=== PATIENT | female | born 1935 | race African-American/Black ===

== ENCOUNTER 2017-06-04 10:56 | Outpatient (CLI) | payer MEDICARE ==
--- NOTE | 2017-06-04 15:19 | PET ---
PET CT OF BRAIN: Date: 06/04/17 HISTORY: 81-year-old female with Alzheimer's disease. TECHNIQUE: PET CT of the brain was performed following the intravenous administration of 8.2 mCi [id number] in the right antecubital fossa. Imaging was performed after an uptake interval of 48 minutes. FINDINGS: There is hypometabolism noted in the temporoparietal lobes bilaterally. IMPRESSION: Findings are consistent with Alzheimer's disease. POS: [facility]
== END 2017-06-04 10:57 | disposition home or self-care (01) ==
LOC: PET 10:56
PROVIDERS: ATTEND Family Medicine
DX: G30.9 Alzheimer's disease, unspecified (principal)
CPT/HCPCS: 78608; A9552

== ENCOUNTER 2019-02-07 04:03 | Emergency (ER) | payer MEDICARE ==
[2019-02-07] MEDS ORDERED: Ondansetron ODT 4 MG TAB ONE (04:28)
== END 2019-02-07 05:35 | disposition home or self-care (01) ==
LOC: ERS 04:03
DX: R11.2 Nausea with vomiting, unspecified (principal); R19.7 Diarrhea, unspecified; I10 Essential (primary) hypertension; E11.9 Type 2 diabetes mellitus without complications; F03.90 Unspecified dementia, unspecified severity, without behavioral disturbance, psychotic disturbance, mood disturbance, and anxiety; Z79.899 Other long term (current) drug therapy
CPT/HCPCS: 99283; Q0162

== ENCOUNTER 2019-07-30 22:09 | Emergency (ER) | payer MEDICARE ==
[2019-07-30 23:00] LABS: Hemoglobin 14.9 g/dL (12.0-16.0); Mean Corpuscular HGB CONC 32.7 g/dL (32.0-36.0); Mean Corpuscular Hemoglobin 32.1 pg (27.0-31.0); Mean Corpuscular Volume 98.2 fL (78.0-98.0); RBC Distribution Width 12.2 % (11.5-14.5); Red Blood Cell (RBC) Count 4.63 mill/uL (4.20-5.40); White Blood Cell (WBC) Count 9.9 thou/uL (4.8-10.8)
[2019-07-30 23:14] LABS: Band 1 % (5-11); Eosinophils 1 % (0-10); Lymphocytes 15 % (21-51); Monocytes 5 % (0-10); Neutrophil 78 % (42-75)
[2019-07-30 23:26] LABS: ALT (SGPT) 12 U/L (8-55); AST (SGOT) 19 U/L (5-34); Alkaline Phosphatase 65 U/L (40-110); Anion Gap 16 mmol/L (10-20); BUN (Urea Nitrogen) 11 mg/dL (9.8-20.1); Bilirubin, Total 0.6 mg/dL (0.2-1.2); Calc. Creatinine Clearance 0 mL/min (70-130); Calcium 8.8 mg/dL (7.8-10.44); Carbon Dioxide 20 mmol/L (23-31); Chloride 107 mmol/L (98-107); Estimated GFR-MDRD 77; Globulin 3.6 g/dL (2.4-3.5); Glucose 178 mg/dL (83-110); Potassium 4.1 mmol/L (3.5-5.1); Protein, Total 7.6 g/dL (6.0-8.3); Sodium 139 mmol/L (136-145)
--- NOTE | 2019-07-30 23:56 | RAD ---
CHEST 1 VIEW: Date: 07/30/2019 HISTORY: Chest pain. COMPARISON: Radiograph from 2016. FINDINGS: The lungs are hypoinflated. The left hemidiaphragm appears to be slightly elevated. There is atelectatic changes of both lung bases. No pneumothorax. Heart size is enlarged. IMPRESSION: High grade lung hypoinflation with vascular crowding and atelectasis. Repeat 2 views of chest may be beneficial. POS: HOME
[2019-07-30 23:58] LABS: Mean Platelet Volume 9.7 fL (7.4-10.4); Platelet Count 112 thou/uL (130-400)
[2019-07-30 23:59] LABS: MDiff Complete? YES
== END 2019-07-31 00:37 | disposition home or self-care (01) ==
LOC: ERS 22:09
DX: R07.9 Chest pain, unspecified (principal); E78.5 Hyperlipidemia, unspecified; I10 Essential (primary) hypertension; E11.9 Type 2 diabetes mellitus without complications; F03.90 Unspecified dementia, unspecified severity, without behavioral disturbance, psychotic disturbance, mood disturbance, and anxiety
CPT/HCPCS: 36415; 71045; 80053; 83690; 84484; 85025; 93005

== ENCOUNTER 2019-08-04 16:41 | Emergency (ER) | payer MEDICARE ==
--- NOTE | 2019-08-04 17:53 | RAD ---
Frontal radiograph chest 2 views of abdomen: 08/04/2019 COMPARISON: Chest radiograph 07/30/2019 HISTORY: Constipation for a week FINDINGS: Upright imaging demonstrates no free intraperitoneal air or evidence of small bowel obstruc tion. Stool projects over the entirety of the colon, most prominent in the region of the ascending colon/transverse colon/rectum. Frontal radiograph chest demonstrates mild increased linear density in the perihilar regions and both lung bases. Slight blunting of bilateral costophrenic angle suggests small volume pleural effusion and/or pleural scar. IMPRESSION: No free intraperitoneal air or evidence of small bowel obstruction. Nonspecific perihilar and bibasilar interstitial prominence with questionable small pleural effusions.
[2019-08-04] MEDS ORDERED: Milk Of Magnesia 30 ML UDCUP ONE (20:43)
== END 2019-08-04 21:27 | disposition home or self-care (01) ==
LOC: ERS 16:41
DX: K59.00 Constipation, unspecified (principal); E11.9 Type 2 diabetes mellitus without complications; E78.5 Hyperlipidemia, unspecified; I10 Essential (primary) hypertension
CPT/HCPCS: 74022

== ENCOUNTER 2019-09-26 15:06 | Outpatient (CLI) | payer MEDICARE ==
--- NOTE | 2019-09-26 16:08 | CT ---
CT BRAIN NONCONTRAST: DATE: 09/26/2019 HISTORY: 84-year-old female with delirium FINDINGS: There is no evidence of acute intra-axial or extra-axial hemorrhage. There is no midline shift or any other mass effect. There is no extra-axial fluid collection. There is no evidence of obstructive hydrocephalus. Calvarium is intact. There is diffuse brain parenchymal volume loss. IMPRESSION: 1) No acute intracranial findings. 2) involutional changes.
== END 2019-09-26 15:07 | disposition home or self-care (01) ==
LOC: BICCT 15:06
PROVIDERS: ATTEND Family Medicine
DX: R41.0 Disorientation, unspecified (principal)
CPT/HCPCS: 70450

== ENCOUNTER 2020-01-22 17:47 | Emergency (ER) | payer MEDICARE ==
--- NOTE | 2020-01-22 18:36 | CT ---
EXAM: CT brain without contrast HISTORY: Possible seizure versus syncope; dementia COMPARISON: 09/26/2019 TECHNIQUE: Multiple contiguous axial images were obtained and a CT of the brain without contrast. FINDINGS: Cerebral atrophy and basal ganglia calcifications are stable. There are scattered hypodensi ties in the subcortical and periventricular white matter consistent with small vessel ischemic disease. There is no evidence of hydrocephalus, intracranial hemorrhage, or extra-axial fluid collect ion. The calvarium and overlying soft tissues are unremarkable. The visualized paranasal sinuses and masto id air cells are well aerated. IMPRESSION: No evidence of acute intracranial abnormality
[2020-01-22 19:08] LABS: #Eosinphils 0.1 thou/uL (0.0-0.7); #Lymphocytes 1.8 thou/uL (1.20-3.40); #Monocytes 0.4 thou/uL (0.11-0.59); #Neutrophils 2.3 thou/uL (1.40-6.50); %Basophils 0.8 % (0.0-1.0); %Eosinophils 1.8 % (0.0-10.0); %Lymphocytes 39.1 % (21.0-51.0); %Monocytes 9.2 % (0.0-10.0); Hemoglobin 14.7 g/dL (12.0-16.0); Mean Corpuscular HGB CONC 32.8 g/dL (32.0-36.0); Mean Corpuscular Hemoglobin 32.3 pg (27.0-31.0); Mean Corpuscular Volume 98.4 fL (78.0-98.0); Mean Platelet Volume 9.9 fL (7.4-10.4); Platelet Count 162 thou/uL (130-400); Red Blood Cell (RBC) Count 4.54 mill/uL (4.20-5.40); White Blood Cell (WBC) Count 4.7 thou/uL (4.8-10.8)
[2020-01-22 19:27] LABS: ALT (SGPT) 12 U/L (8-55); AST (SGOT) 17 U/L (5-34); Albumin 3.7 g/dL (3.4-4.8); Alkaline Phosphatase 60 U/L (40-110); Anion Gap 13 mmol/L (10-20); BUN (Urea Nitrogen) 12 mg/dL (9.8-20.1); Bilirubin, Total 0.4 mg/dL (0.2-1.2); Calc. Creatinine Clearance 0 mL/min (70-130); Calcium 9.2 mg/dL (7.8-10.44); Carbon Dioxide 27 mmol/L (23-31); Chloride 106 mmol/L (98-107); Estimated GFR-MDRD 71; Globulin 3.6 g/dL (2.4-3.5); Glucose 99 mg/dL (83-110); Potassium 3.8 mmol/L (3.5-5.1); Protein, Total 7.3 g/dL (6.0-8.3); Sodium 142 mmol/L (136-145)
== END 2020-01-22 20:22 | disposition home or self-care (01) ==
LOC: ERS 17:47
DX: I10 Essential (primary) hypertension (principal); F03.90 Unspecified dementia, unspecified severity, without behavioral disturbance, psychotic disturbance, mood disturbance, and anxiety; E11.9 Type 2 diabetes mellitus without complications; E78.5 Hyperlipidemia, unspecified
CPT/HCPCS: 36415; 70450; 80053; 84484; 85025; 93005

== ENCOUNTER 2020-05-08 18:18 | Observation (INO) | payer MEDICARE ==
[2020-05-08 18:50] LABS: Hemoglobin 14.8 g/dL (12.0-16.0); Mean Corpuscular HGB CONC 32.2 g/dL (32.0-36.0); Mean Corpuscular Hemoglobin 32.4 pg (27.0-31.0); Mean Platelet Volume 9.7 fL (7.4-10.4); Platelet Count 196 thou/uL (130-400); RBC Distribution Width 12.5 % (11.5-14.5); Red Blood Cell (RBC) Count 4.57 mill/uL (4.20-5.40); White Blood Cell (WBC) Count 4.6 thou/uL (4.8-10.8)
[2020-05-08 19:09] LABS: ALT (SGPT) 25 U/L (8-55); AST (SGOT) 23 U/L (5-34); Albumin 3.7 g/dL (3.4-4.8); Alkaline Phosphatase 58 U/L (40-110); Anion Gap 14 mmol/L (10-20); BUN (Urea Nitrogen) 18 mg/dL (9.8-20.1); Bilirubin, Total 0.2 mg/dL (0.2-1.2); CK (CPK) 63 U/L (29-168); Calc. Creatinine Clearance 0 mL/min (70-130); Calcium 9.4 mg/dL (7.8-10.44); Carbon Dioxide 23 mmol/L (23-31); Chloride 107 mmol/L (98-107); Globulin 3.8 g/dL (2.4-3.5); Glucose 136 mg/dL (83-110); Potassium 4.2 mmol/L (3.5-5.1); Protein, Total 7.5 g/dL (5.8-8.1); Sodium 140 mmol/L (136-145)
[2020-05-08 19:10] LABS: Band 3 % (5-11); Eosinophils 2 % (0-10); Lymphocytes 50 % (21-51); MDiff Complete? YES; Macrocytosis SLIGHT = 6-15 cells (100X) (0-5/hpf); Monocytes 10 % (0-10); Neutrophil 29 % (42-75); Platelet Morphology Comment Appears Adequate; Polychromasia SLIGHT = 2-3 cells (100X) (0-2/hpf); Reactive Lymphocytes 6 % (0-10)
[2020-05-08 22:38] LABS: Bilirubin Negative (Negative); Blood, Urine Negative (Negative); Clarity Clear (Clear); Glucose, Urine (Dipstick) Normal (Negative); Ketone, Urine Negative (Negative); Leukocyte Negative Leu/uL (Negative); Nitrite Negative (Negative); Protein, Urine (Dipstick) Negative (Neg-Trace); Specific Gravity, Urine 1.021 (1.002-1.036); pH, Urine 6.5 (5.0-9.0)
[2020-05-08 23:26] LABS: Troponin I 0.017 ng/mL (< 0.028)
[2020-05-09 01:25] LABS: Troponin I 0.015 ng/mL (< 0.028)
[2020-05-09 05:45] LABS: SARS-CoV-2 PCR by NAA Not Detected (NotDetected)
[2020-05-09] MEDS ORDERED: Dextrose 50% Abboject 50 ML SYRINGE SLOW IVP PRN (07:12)
[2020-05-09] MEDS ORDERED: Dextrose 5% in Water 1,000 ML IV PRN (07:12)
[2020-05-09] MEDS ORDERED: HumaLOG 300 UNITS/3 ML VIAL SC PRN (07:12)
[2020-05-09] MEDS ORDERED: Enoxaparin Sodium 40 MG/0.4 ML SYRINGE SC SCH (09:00)
[2020-05-09] MEDS ORDERED: Enoxaparin Sodium 40 MG/0.4 ML SYRINGE ONE (10:18)
== END 2020-05-09 10:30 | disposition short-term general hospital (02) ==
LOC: ERS 18:18 → ERHOLD 22:23
PROVIDERS: ADMIT Student in an Organized Health Care Education/Training Program; ATTEND Internal Medicine
DX: R55 Syncope and collapse (principal); I95.9 Hypotension, unspecified; E11.9 Type 2 diabetes mellitus without complications; I10 Essential (primary) hypertension; E78.5 Hyperlipidemia, unspecified; S00.81XA Abrasion of other part of head, initial encounter; S80.212A Abrasion, left knee, initial encounter; G30.9 Alzheimer's disease, unspecified; F02.80 Dementia in other diseases classified elsewhere, unspecified severity, without behavioral disturbance, psychotic disturbance, mood disturbance, and anxiety; M47.816 Spondylosis without myelopathy or radiculopathy, lumbar region; M47.817 Spondylosis without myelopathy or radiculopathy, lumbosacral region; M85.88 Other specified disorders of bone density and structure, other site; M81.0 Age-related osteoporosis without current pathological fracture; Z79.84 Long term (current) use of oral hypoglycemic drugs; Z79.899 Other long term (current) drug therapy; Z20.822 Contact with and (suspected) exposure to COVID-19; W19.XXXA Unspecified fall, initial encounter
CPT/HCPCS: 70450; 71045; 72125; 72131; 80053; 81003; 82550; 84484 ×3; 85025; 87086; 93005; 97139; 99285; U0003; U0005; 36415; 87635; J1650

== ENCOUNTER 2020-12-28 16:40 | Inpatient (IN) | payer MEDICARE ==
[~2020-12-28 16:40] MED LIST: Iopamidol-370 76% 500 ML 1 ML ONE
[2020-12-28 17:03] LABS: Hemoglobin 15.1 g/dL (12.0-16.0); Mean Corpuscular HGB CONC 33.4 g/dL (32.0-36.0); Mean Corpuscular Hemoglobin 32.3 pg (27.0-31.0); Mean Corpuscular Volume 96.9 fL (78.0-98.0); Mean Platelet Volume 10.1 fL (7.4-10.4); Platelet Count 177 thou/uL (130-400); Red Blood Cell (RBC) Count 4.66 mill/uL (4.20-5.40); White Blood Cell (WBC) Count 6.1 thou/uL (4.8-10.8)
[2020-12-28 17:10] LABS: PTT 23.1 sec (22.9-36.1); Prothrombin Time 12.8 sec (12.0-14.7)
[2020-12-28 17:15] LABS: ALT (SGPT) 16 U/L (8-55); AST (SGOT) 18 U/L (5-34); Alkaline Phosphatase 55 U/L (40-110); Anion Gap 18 mmol/L (10-20); BUN (Urea Nitrogen) 16 mg/dL (9.8-20.1); Bilirubin, Total 0.3 mg/dL (0.2-1.2); CK (CPK) 79 U/L (29-168); Calc. Creatinine Clearance 0 mL/min (70-130); Calcium 9.5 mg/dL (7.8-10.44); Carbon Dioxide 18 mmol/L (23-31); Chloride 109 mmol/L (98-107); Globulin 3.6 g/dL (2.4-3.5); Glucose 171 mg/dL (83-110); Magnesium 2.4 mg/dL (1.6-2.6); Potassium 4.2 mmol/L (3.5-5.1); Protein, Total 7.6 g/dL (5.8-8.1); Sodium 141 mmol/L (136-145)
[2020-12-28 17:24] LABS: Bilirubin Negative (Negative); Blood, Urine Negative (Negative); Glucose, Urine (Dipstick) Negative (Negative); Ketone, Urine Trace mg/dL (Negative); Leukocyte Trace (Negative); Nitrite Negative (Negative); Protein, Urine (Dipstick) Trace mg/dL (Neg-Trace); Specific Gravity, Urine 1.025 (1.005-1.030); Urobilinogen 0.2 mg/dL (Less than 2)
[2020-12-28 17:25] LABS: Clarity Clear (Clear)
[2020-12-28 17:26] LABS: Other Microscopic Description Less than 2 mL rec'd
[2020-12-28 17:27] LABS: Bacteria/HPF 2+ HPF (None Seen); RBC/HPF None Seen HPF (0-3); WBC/HPF 0-3 HPF (0-3)
[2020-12-28 17:28] LABS: Band 4 % (5-11); Lymphocytes 60 % (21-51); MDiff Complete? YES; Monocytes 7 % (0-10); Neutrophil 18 % (42-75); Platelet Morphology Comment Appears Adequate; RBC Morphology Normal; Reactive Lymphocytes 11 % (0-10)
[2020-12-28] MEDS ORDERED: Senokot S 8.6-50 MG TAB PO PRN (17:51)
[2020-12-28] MEDS ORDERED: Acetaminophen 325 MG TAB PO PRN (17:51)
[2020-12-28] MEDS ORDERED: Ondansetron PF 4 MG/2 ML Vial IVP PRN (17:51)
[2020-12-28] MEDS ORDERED: Guaifenesin DM 100-10/5 ML UDCUP PO PRN (17:51)
[2020-12-28] MEDS ORDERED: Calcium Carbonate 500 MG ChewTAB PO PRN (17:51)
[2020-12-28] MEDS ORDERED: Bisacodyl 10 MG SUPP PR PRN (17:51)
[2020-12-28] MEDS ORDERED: cefTRIAXone\\ROCEPHIN 2 GM VIAL ONE (17:58)
[2020-12-28 20:04] LABS: Lactic Acid 2.2 mmol/L (0.5-2.2)
[2020-12-28] MEDS ORDERED: Famotidine 20 MG TAB PO SCH (21:00)
[2020-12-28 22:15] VITALS: BMI 27.3
[2020-12-28 22:33] LABS: Amphetamine Not Detected (NotDetected); Barbiturates Screen Not Detected (NotDetected); Benzodiazepine Screen Not Detected (NotDetected); Cocaine Metabolite Screen Not Detected (NotDetected); Methadone Not Detected (NotDetected); Methamphetamine Not Detected (NotDetected); Opiate Screen Not Detected (NotDetected); Oxycodone Screen Not Detected (NotDetected); Phencyclidine (PCP) Not Detected (NotDetected); THC/Cannabinoid Screen Not Detected (NotDetected); Tricyclic Screen Not Detected (NotDetected)
[2020-12-28] MEDS: Sodium Chloride 0.9% 1,000 ML IV SCH (22:41)
[2020-12-29] MEDS ORDERED: Lisinopril 20 MG TAB PO SCH ×2 (00:45→09:00)
[2020-12-29 08:29] LABS: #Lymphocytes 2.1 thou/uL (1.20-3.40); #Monocytes 0.8 thou/uL (0.11-0.59); #Neutrophils 4.8 thou/uL (1.40-6.50); %Basophils 0.5 % (0.0-1.0); %Eosinophils 0.6 % (0.0-10.0); %Monocytes 9.8 % (0.0-10.0); %Neutrophils 62.1 % (42.0-75.0); Hemoglobin 14.9 g/dL (12.0-16.0); Mean Corpuscular HGB CONC 34.6 g/dL (32.0-36.0); Mean Corpuscular Hemoglobin 34.1 pg (27.0-31.0); Mean Corpuscular Volume 98.5 fL (78.0-98.0); Mean Platelet Volume 10.1 fL (7.4-10.4); Platelet Count 155 thou/uL (130-400); RBC Distribution Width 12.2 % (11.5-14.5); Red Blood Cell (RBC) Count 4.36 mill/uL (4.20-5.40); White Blood Cell (WBC) Count 7.8 thou/uL (4.8-10.8)
[2020-12-29 08:49] LABS: ALT (SGPT) 14 U/L (8-55); AST (SGOT) 16 U/L (5-34); Albumin 3.8 g/dL (3.4-4.8); Alkaline Phosphatase 56 U/L (40-110); Anion Gap 13 mmol/L (10-20); BUN (Urea Nitrogen) 11 mg/dL (9.8-20.1); Bilirubin, Total 0.5 mg/dL (0.2-1.2); Calc. Creatinine Clearance 71 mL/min (70-130); Carbon Dioxide 23 mmol/L (23-31); Chloride 108 mmol/L (98-107); Globulin 3.3 g/dL (2.4-3.5); Glucose 91 mg/dL (83-110); Potassium 4.3 mmol/L (3.5-5.1); Protein, Total 7.1 g/dL (5.8-8.1); Sodium 140 mmol/L (136-145)
[2020-12-29] MEDS ORDERED: Enoxaparin Sodium 40 MG/0.4 ML SYRINGE SC SCH (09:00)
[2020-12-29] MEDS ORDERED: Amlodipine 10 MG TAB PO SCH (11:15)
[2020-12-29 11:35] VITALS: BP 142/98; TEMP 98.3
[2020-12-29] MEDS: Sodium Chloride 0.9% 1,000 ML IV SCH (12:31)
[2020-12-29 16:22] LABS: SARS-CoV-2 PCR by NAA Not Detected (NotDetected)
[2020-12-30] MEDS ORDERED: Amlodipine 10 MG TAB PO SCH (09:00)
== END 2020-12-29 13:07 | disposition home or self-care (01) | DRG 641 ==
LOC: ERS 16:40 → 2NO 17:37
PROVIDERS: ADMIT Internal Medicine; ATTEND Internal Medicine
DX: E86.0 Dehydration (principal); N39.0 Urinary tract infection, site not specified; Z20.822 Contact with and (suspected) exposure to COVID-19; I95.9 Hypotension, unspecified; I10 Essential (primary) hypertension; E11.9 Type 2 diabetes mellitus without complications; E78.5 Hyperlipidemia, unspecified; K21.9 Gastro-esophageal reflux disease without esophagitis; G30.9 Alzheimer's disease, unspecified; F02.80 Dementia in other diseases classified elsewhere, unspecified severity, without behavioral disturbance, psychotic disturbance, mood disturbance, and anxiety; Z79.84 Long term (current) use of oral hypoglycemic drugs; Z90.49 Acquired absence of other specified parts of digestive tract; Z90.711 Acquired absence of uterus with remaining cervical stump; Z79.899 Other long term (current) drug therapy
CPT/HCPCS: 36415; 36416; 51701; 70496; 71045; 80053; 80306; 81003; 81015; 82550; 83605; 83735; 84443; 84484; 85025; 85610; 85730; 87040; 87086; 93005; 93880; 94760; 96374; J0696; J1650; J1956; J7050; Q9967; U0003; U0005

== ENCOUNTER 2022-10-27 16:27 | Observation (INO) | payer MEDICARE, OTHER ==
[2022-10-27 18:18] LABS: Bacteria/HPF 1+ HPF (None Seen); Bilirubin Negative (Negative); Blood, Urine Negative (Negative); CAUTI Indications for Culture Alt mental st,lethar; Clarity Turbid (Clear); Glucose, Urine (Dipstick) Normal (Negative); Ketone, Urine 10 mg/dL (Negative); Leukocyte 25 Leu/uL (Negative); Nitrite Negative (Negative); Protein, Urine (Dipstick) 30 mg/dL (Neg-Trace); RBC/HPF 0-3 HPF (0-3); Specific Gravity, Urine 1.018 (1.002-1.036); Squamous Epithelial 0-3 HPF (0-3)
[2022-10-27 18:20] LABS: Urine Culture Reflex No No
[2022-10-27 18:23] LABS: Amphetamine Not Detected (NotDetected); Barbiturates Screen Not Detected (NotDetected); Benzodiazepine Screen Not Detected (NotDetected); Cocaine Metabolite Screen Not Detected (NotDetected); Methadone Not Detected (NotDetected); Methamphetamine Not Detected (NotDetected); Opiate Screen Not Detected (NotDetected); Oxycodone Screen Not Detected (NotDetected); Phencyclidine (PCP) Not Detected (NotDetected); THC/Cannabinoid Screen Not Detected (NotDetected); Tricyclic Screen Not Detected (NotDetected)
[2022-10-27 18:41] LABS: #Monocytes 0.6 thou/uL (0.11-0.59); #Neutrophils 5.9 thou/uL (1.40-6.50); %Basophils 0.5 % (0.0-1.0); %Eosinophils 0.5 % (0.0-10.0); %Lymphocytes 13.1 % (21.0-51.0); %Monocytes 7.5 % (0.0-10.0); Hematocrit 48.1 % (36.0-47.0); Hemoglobin 15.4 g/dL (12.0-16.0); Mean Corpuscular Hemoglobin 31.4 pg (27.0-31.0); Mean Corpuscular Volume 98.2 fl (78.0-98.0); Mean Platelet Volume 12.2 fL (7.4-10.4); Platelet Count 154 10x3/uL (130-400); RBC Distribution Width 13.7 % (11.5-14.5); White Blood Cell (WBC) Count 7.5 10x3/uL (4.8-10.8)
[2022-10-27 19:11] LABS: ALT (SGPT) 11 U/L (8-55); AST (SGOT) 18 U/L (5-34); Albumin 3.8 g/dL (3.4-4.8); Alkaline Phosphatase 60 U/L (40-110); Anion Gap 15 mmol/L (10-20); BUN (Urea Nitrogen) 19 mg/dL (9.8-20.1); Bilirubin, Total 0.8 mg/dL (0.2-1.2); Calc. Creatinine Clearance 0 mL/min (70-130); Calcium 9.1 mg/dL (7.8-10.44); Carbon Dioxide 21 mmol/L (23-31); Chloride 111 mmol/L (98-107); Estimated GFR 55; Globulin 3.8 g/dL (2.4-3.5); Glucose 101 mg/dL (83-110); Potassium 3.4 mmol/L (3.5-5.1); Protein, Total 7.6 g/dL (5.8-8.1); Sodium 144 mmol/L (136-145)
[2022-10-27 19:16] LABS: Troponin I Less than 0.010 ng/mL (< 0.028)
[2022-10-27] MEDS ORDERED: cefTRIAXone (ROCEPHIN) 1 GM VIAL ONE (19:18)
[2022-10-27 19:36] LABS: Acetaminophen Less than 10 mcg/mL (10.0-30.0); Alcohol Less than 10.0 mg/dL (Less than 10); Salicylate Less than 8.0 mg/dL (15.0-30.0)
[2022-10-27 21:29] LABS: Lactic Acid 1.5 mmol/L (0.5-2.2)
[2022-10-27] MEDS ORDERED: Ondansetron PF 4 MG/2 ML Vial IVP PRN (22:00)
[2022-10-27] MEDS ORDERED: Ondansetron ODT 4 MG TAB SL PRN (22:00)
[2022-10-27] MEDS ORDERED: Sodium Chloride 0.9% 1,000 ML IV SCH (22:00)
[2022-10-27] MEDS ORDERED: Senokot S 8.6-50 MG TAB PO PRN (22:06)
[2022-10-27] MEDS ORDERED: Acetaminophen 325 MG TAB PO PRN (22:06)
[2022-10-27] MEDS ORDERED: Calcium Carbonate 500 MG ChewTAB PO PRN (22:06)
[2022-10-27 22:34] LABS: Hemoglobin A1c 5.6 % (4.0-6.0)
[2022-10-27 23:05] VITALS: BMI 26.4
[2022-10-28] MEDS ORDERED: Melatonin 3 MG TAB PO PRN (00:24)
[2022-10-28] MEDS ORDERED: hydrALAZINE 20 MG/ML VIAL SLOW IVP SCH (01:30)
[2022-10-28 05:23] LABS: #Eosinphils 0.1 thou/uL (0.0-0.7); #Monocytes 0.6 thou/uL (0.11-0.59); #Neutrophils 3.8 thou/uL (1.40-6.50); %Basophils 0.5 % (0.0-1.0); %Eosinophils 0.8 % (0.0-10.0); %Lymphocytes 29.1 % (21.0-51.0); %Monocytes 8.8 % (0.0-10.0); %Neutrophils 60.5 % (42.0-75.0); Hematocrit 45.2 % (36.0-47.0); Hemoglobin 14.7 g/dL (12.0-16.0); Mean Corpuscular HGB CONC 32.5 g/dL (32.0-36.0); Mean Corpuscular Volume 98.5 fl (78.0-98.0); Mean Platelet Volume 12.3 fL (7.4-10.4); Platelet Count 169 10x3/uL (130-400); RBC Distribution Width 13.7 % (11.5-14.5); Red Blood Cell (RBC) Count 4.59 mill/uL (4.20-5.40); White Blood Cell (WBC) Count 6.3 10x3/uL (4.8-10.8)
[2022-10-28 05:53] LABS: Anion Gap 13 mmol/L (10-20); BUN (Urea Nitrogen) 13 mg/dL (9.8-20.1); Calc. Creatinine Clearance 65 mL/min (70-130); Calcium 8.4 mg/dL (7.8-10.44); Carbon Dioxide 19 mmol/L (23-31); Chloride 115 mmol/L (98-107); Estimated GFR 85; Glucose 92 mg/dL (83-110); Potassium 3.4 mmol/L (3.5-5.1); Sodium 144 mmol/L (136-145)
[2022-10-28] MEDS ORDERED: Amlodipine 10 MG TAB PO SCH (09:00)
[2022-10-28 12:47] VITALS: BP 157/70; TEMP 97.2
== END 2022-10-28 15:20 | disposition home or self-care (01) ==
LOC: ERS 16:27 → EDBD 16:27 → 2SE 20:05
PROVIDERS: ADMIT Student in an Organized Health Care Education/Training Program; ATTEND Hospitalist
DX: R55 Syncope and collapse (principal); E11.9 Type 2 diabetes mellitus without complications; I10 Essential (primary) hypertension; E78.5 Hyperlipidemia, unspecified; K21.9 Gastro-esophageal reflux disease without esophagitis; R82.71 Bacteriuria; F03.90 Unspecified dementia, unspecified severity, without behavioral disturbance, psychotic disturbance, mood disturbance, and anxiety; Z90.49 Acquired absence of other specified parts of digestive tract; Z90.710 Acquired absence of both cervix and uterus; Z79.891 Long term (current) use of opiate analgesic; W19.XXXA Unspecified fall, initial encounter
CPT/HCPCS: 51701; 70450; 71045; 72125; 80048; 80306; 80307; 81001; 82962; 83036; 83605; 84145; 84484; 85025; 87040; 93005; 95712; 95819; 95957; 96365; 96367; 96375; 99285; G0378 ×3; J0360; 36415; 80053; 84443; J0696; J7050

== ENCOUNTER 2023-01-15 17:51 | Inpatient (IN) | payer MEDICARE ==
[~2023-01-15 17:51] MED LIST changes: +Iopamidol 370 76% 100 ML VIAL ONE; -Iopamidol-370 76% 500 ML 1 ML ONE; +Iopamidol-370 76% 500 ML MDV (1 ML CHARGE) ONE
[2023-01-15 18:46] LABS: #Monocytes 0.4 thou/uL (0.11-0.59); #Neutrophils 3.4 thou/uL (1.40-6.50); %Basophils 0.6 % (0.0-1.0); %Eosinophils 0.4 % (0.0-10.0); %Lymphocytes 25.2 % (21.0-51.0); %Monocytes 6.9 % (0.0-10.0); %Neutrophils 66.7 % (42.0-75.0); Hematocrit 39.9 % (36.0-47.0); Hemoglobin 13.2 g/dL (12.0-16.0); Mean Corpuscular HGB CONC 33.1 g/dL (32.0-36.0); Mean Corpuscular Hemoglobin 32.4 pg (27.0-31.0); Mean Corpuscular Volume 97.8 fl (78.0-98.0); Mean Platelet Volume 11.4 fL (7.4-10.4); Platelet Count 175 10x3/uL (130-400); RBC Distribution Width 13.6 % (11.5-14.5); Red Blood Cell (RBC) Count 4.08 mill/uL (4.20-5.40); White Blood Cell (WBC) Count 5.1 10x3/uL (4.8-10.8)
[2023-01-15] MEDS ORDERED: fentaNYL PF 100 MCG/2 ML SYRINGE ONE (18:54)
[2023-01-15] MEDS ORDERED: Lidocaine 1% (PF) 30 ML VIAL ONE (19:04)
[2023-01-15] MEDS ORDERED: Heparin 10,000 UNITS/ 10 ML VIAL ONE (19:04)
[2023-01-15] MEDS ORDERED: SUGAMMADEX SODIUM 200 MG/2 ML VIAL ONE (19:12)
[2023-01-15 19:13] LABS: Troponin I 0.015 ng/mL (< 0.028)
[2023-01-15 19:14] LABS: ALT (SGPT) 11 U/L (8-55); AST (SGOT) 17 U/L (5-34); Alkaline Phosphatase 52 U/L (40-110); Anion Gap 14 mmol/L (10-20); BUN (Urea Nitrogen) 15 mg/dL (9.8-20.1); Bilirubin, Total 0.5 mg/dL (0.2-1.2); Calc. Creatinine Clearance 0 mL/min (70-130); Calcium 9.3 mg/dL (7.8-10.44); Carbon Dioxide 24 mmol/L (23-31); Chloride 105 mmol/L (98-107); Estimated GFR 68; Glucose 143 mg/dL (83-110); Sodium 139 mmol/L (136-145)
[2023-01-15 19:21] LABS: Prothrombin Time 13.9 sec (12.0-14.7)
[2023-01-15 19:23] LABS: PTT 25.4 sec (22.9-36.1)
[2023-01-15] MEDS ORDERED: Rocuronium Bromide 10 MG/ML (10ML VIAL) ONE (19:26)
[2023-01-15] MEDS ORDERED: PROPOFOL 200 MG/20 ML VIAL ONE (19:26)
[2023-01-15] MEDS ORDERED: Lidocaine 1% PF 5 ML VIAL ONE (19:26)
[2023-01-15] MEDS ORDERED: Esmolol 100 MG/10 ML VIAL ONE (19:26)
[2023-01-15] MEDS ORDERED: Acetaminophen 325 MG TAB PO PRN (20:07)
[2023-01-15] MEDS ORDERED: niCARdipine 25 MG in Sodium Chloride 0.9% 250 ML 250 ML IVPB PRN (20:07)
[2023-01-15] MEDS ORDERED: Labetalol HCl 100 MG/20 ML VIAL SLOW IVP PRN (20:07)
[2023-01-15] MEDS ORDERED: hydrALAZINE 20 MG/ML VIAL SLOW IVP PRN (20:07)
[2023-01-15] MEDS: Sodium Chloride 0.9% 1,000 ML IV SCH (20:45)
[2023-01-15] MEDS ORDERED: Glucagon 1 MG/ML KIT IM PRN (21:34)
[2023-01-15] MEDS ORDERED: Dextrose 50% Abboject 50 ML SYRINGE SLOW IVP PRN (21:34)
[2023-01-15] MEDS ORDERED: Dextrose 5% in Water 1,000 ML IV PRN (21:34)
[2023-01-15] MEDS ORDERED: Electrolyte Replacement Protocol 1 EACH FS PRN (21:34)
[2023-01-15] MEDS: Atorvastatin Calcium 40 MG TAB PO SCH (22:16)
[2023-01-16 05:08] LABS: #Monocytes 0.4 thou/uL (0.11-0.59); #Neutrophils 4.1 thou/uL (1.40-6.50); %Basophils 0.2 % (0.0-1.0); %Monocytes 6.9 % (0.0-10.0); %Neutrophils 78.5 % (42.0-75.0); Hematocrit 38.5 % (36.0-47.0); Hemoglobin 12.8 g/dL (12.0-16.0); Mean Corpuscular HGB CONC 33.2 g/dL (32.0-36.0); Mean Corpuscular Hemoglobin 32.7 pg (27.0-31.0); Mean Corpuscular Volume 98.2 fl (78.0-98.0); Mean Platelet Volume 11.8 fL (7.4-10.4); Platelet Count 180 10x3/uL (130-400); RBC Distribution Width 13.5 % (11.5-14.5); Red Blood Cell (RBC) Count 3.92 mill/uL (4.20-5.40); White Blood Cell (WBC) Count 5.2 10x3/uL (4.8-10.8)
[2023-01-16 05:43] LABS: Anion Gap 15 mmol/L (10-20); BUN (Urea Nitrogen) 10 mg/dL (9.8-20.1); Calc. Creatinine Clearance 64 mL/min (70-130); Calcium 8.6 mg/dL (7.8-10.44); Carbon Dioxide 21 mmol/L (23-31); Chloride 108 mmol/L (98-107); Cholesterol 254 mg/dl (< 200 Desired); Estimated GFR 78; Glucose 129 mg/dL (83-110); HDL Cholesterol 63 mg/dL (>60 Neg Risk); LDL Cholesterol, Calculated 174 mg/dL; Potassium 3.9 mmol/L (3.5-5.1); Sodium 140 mmol/L (136-145); Triglycerides 83 mg/dL (Less than 150)
[2023-01-16] MEDS: Aspirin 300 MG Suppository PR SCH (09:30)
[2023-01-16] MEDS: Aspirin 325 mg Enteric Coated Tablet PO SCH (09:31)
[2023-01-16] MEDS: Pantoprazole 40 MG VIAL IVP SCH (09:31)
[2023-01-16] MEDS: Sodium Chloride 0.9% 1,000 ML IV SCH ×2 (11:07→20:01)
[2023-01-16] MEDS: Atorvastatin Calcium 40 MG TAB PO SCH (20:01)
[2023-01-17 05:35] VITALS: BMI 25.9
[2023-01-17] MEDS: Pantoprazole 40 MG VIAL IVP SCH (09:40)
[2023-01-17] MEDS: Aspirin 300 MG Suppository PR SCH (09:40)
[2023-01-17] MEDS: Aspirin 325 mg Enteric Coated Tablet PO SCH (09:41)
[2023-01-17] MEDS: Sodium Chloride 0.9% 1,000 ML IV SCH ×2 (09:42→21:08)
[2023-01-17] MEDS: Atorvastatin Calcium 40 MG TAB PO SCH (21:04)
[2023-01-18 06:58] LABS: #Eosinphils 0.1 thou/uL (0.0-0.7); #Monocytes 0.8 thou/uL (0.11-0.59); #Neutrophils 3.4 thou/uL (1.40-6.50); %Basophils 0.6 % (0.0-1.0); %Eosinophils 1.8 % (0.0-10.0); %Lymphocytes 29.5 % (21.0-51.0); %Monocytes 12.8 % (0.0-10.0); Hematocrit 36.2 % (36.0-47.0); Mean Corpuscular HGB CONC 33.1 g/dL (32.0-36.0); Mean Corpuscular Hemoglobin 32.3 pg (27.0-31.0); Mean Corpuscular Volume 97.3 fl (78.0-98.0); Mean Platelet Volume 11.6 fL (7.4-10.4); Platelet Count 147 10x3/uL (130-400); RBC Distribution Width 13.6 % (11.5-14.5); Red Blood Cell (RBC) Count 3.72 mill/uL (4.20-5.40); White Blood Cell (WBC) Count 6.2 10x3/uL (4.8-10.8)
[2023-01-18 07:29] LABS: Anion Gap 10 mmol/L (10-20); BUN (Urea Nitrogen) 8 mg/dL (9.8-20.1); Calc. Creatinine Clearance 71 mL/min (70-130); Calcium 8.4 mg/dL (7.8-10.44); Carbon Dioxide 22 mmol/L (23-31); Chloride 110 mmol/L (98-107); Estimated GFR 86; Glucose 89 mg/dL (83-110); Potassium 3.3 mmol/L (3.5-5.1); Sodium 139 mmol/L (136-145)
[2023-01-18] MEDS: Aspirin 300 MG Suppository PR SCH (08:22)
[2023-01-18] MEDS: Pantoprazole 40 MG VIAL IVP SCH (08:23)
[2023-01-18] MEDS: Aspirin 325 mg Enteric Coated Tablet PO SCH (08:23)
[2023-01-18] MEDS: Sodium Chloride 0.9% 1,000 ML IV SCH ×2 (08:54→22:37)
[2023-01-18] MEDS ORDERED: FLU VACC QS2023(65UP)/MF59C/PF 60 MCG/0.5 ML SYRINGE IM ONE (09:00)
[2023-01-18] MEDS ORDERED: Potassium Chloride 20 MEQ TAB PO SCH (09:00)
[2023-01-18] MEDS: Potassium Chloride 20 MEQ in Premix 1 BAG IVPB SCH ×2 (10:13→11:50)
[2023-01-18] MEDS: Atorvastatin Calcium 40 MG TAB PO SCH (21:01)
[2023-01-19] MEDS ORDERED: NOREPINEPHRINE 8 MG/250 ML-D5W 250 ML ONE (03:07)
[2023-01-19 04:00] LABS: #Eosinphils 0.2 thou/uL (0.0-0.7); #Monocytes 0.7 thou/uL (0.11-0.59); #Neutrophils 3.1 thou/uL (1.40-6.50); %Basophils 0.5 % (0.0-1.0); %Eosinophils 2.9 % (0.0-10.0); %Lymphocytes 29.8 % (21.0-51.0); %Neutrophils 54.5 % (42.0-75.0); Hematocrit 34.6 % (36.0-47.0); Hemoglobin 11.3 g/dL (12.0-16.0); Mean Corpuscular HGB CONC 32.7 g/dL (32.0-36.0); Mean Corpuscular Hemoglobin 32.1 pg (27.0-31.0); Mean Corpuscular Volume 98.3 fl (78.0-98.0); Mean Platelet Volume 11.6 fL (7.4-10.4); Platelet Count 149 10x3/uL (130-400); RBC Distribution Width 13.6 % (11.5-14.5); Red Blood Cell (RBC) Count 3.52 mill/uL (4.20-5.40); White Blood Cell (WBC) Count 5.8 10x3/uL (4.8-10.8)
[2023-01-19 04:28] LABS: Anion Gap 12 mmol/L (10-20); BUN (Urea Nitrogen) 9 mg/dL (9.8-20.1); Calc. Creatinine Clearance 75 mL/min (70-130); Calcium 8.4 mg/dL (7.8-10.44); Carbon Dioxide 22 mmol/L (23-31); Chloride 109 mmol/L (98-107); Estimated GFR 86; Glucose 84 mg/dL (83-110); Potassium 3.5 mmol/L (3.5-5.1); Sodium 139 mmol/L (136-145)
[2023-01-19] MEDS: Aspirin 325 mg Enteric Coated Tablet PO SCH (07:52)
[2023-01-19] MEDS: Aspirin 300 MG Suppository PR SCH (07:52)
[2023-01-19] MEDS: Pantoprazole 40 MG VIAL IVP SCH (07:53)
[2023-01-19] MEDS: Potassium Chloride 20 MEQ in Premix 1 BAG IVPB SCH ×2 (07:53→09:42)
[2023-01-19] MEDS: Sodium Chloride 0.9% 1,000 ML IV SCH (09:43)
[2023-01-19] MEDS: Atorvastatin Calcium 40 MG TAB PO SCH (20:05)
[2023-01-20] MEDS: Sodium Chloride 0.9% 1,000 ML IV SCH ×3 (00:55→13:15)
[2023-01-20 05:39] LABS: #Eosinphils 0.2 thou/uL (0.0-0.7); #Monocytes 0.7 thou/uL (0.11-0.59); #Neutrophils 2.9 thou/uL (1.40-6.50); %Basophils 0.8 % (0.0-1.0); %Eosinophils 3.1 % (0.0-10.0); %Lymphocytes 27.1 % (21.0-51.0); %Monocytes 12.7 % (0.0-10.0); %Neutrophils 55.9 % (42.0-75.0); Hematocrit 37.4 % (36.0-47.0); Hemoglobin 12.4 g/dL (12.0-16.0); Mean Corpuscular HGB CONC 33.2 g/dL (32.0-36.0); Mean Corpuscular Hemoglobin 32.5 pg (27.0-31.0); Mean Corpuscular Volume 98.2 fl (78.0-98.0); Mean Platelet Volume 12.8 fL (7.4-10.4); Platelet Count 155 10x3/uL (130-400); RBC Distribution Width 13.5 % (11.5-14.5); Red Blood Cell (RBC) Count 3.81 mill/uL (4.20-5.40); White Blood Cell (WBC) Count 5.1 10x3/uL (4.8-10.8)
[2023-01-20 06:14] LABS: Anion Gap 13 mmol/L (10-20); BUN (Urea Nitrogen) 8 mg/dL (9.8-20.1); Calc. Creatinine Clearance 71 mL/min (70-130); Calcium 8.6 mg/dL (7.8-10.44); Carbon Dioxide 20 mmol/L (23-31); Chloride 109 mmol/L (98-107); Estimated GFR 86; Glucose 91 mg/dL (83-110); Potassium 4.1 mmol/L (3.5-5.1); Sodium 138 mmol/L (136-145)
[2023-01-20] MEDS: Aspirin 325 mg Enteric Coated Tablet PO SCH (09:31)
[2023-01-20] MEDS: Pantoprazole 40 MG VIAL IVP SCH (09:32)
[2023-01-20] MEDS: Aspirin 300 MG Suppository PR SCH (11:33)
[2023-01-20] MEDS: Atorvastatin Calcium 40 MG TAB PO SCH (20:14)
[2023-01-21] MEDS: Sodium Chloride 0.9% 1,000 ML IV SCH ×2 (02:08→14:46)
[2023-01-21] MEDS: Pantoprazole 40 MG VIAL IVP SCH (10:37)
[2023-01-21] MEDS: Aspirin 325 mg Enteric Coated Tablet PO SCH (10:37)
[2023-01-21] MEDS: Aspirin 300 MG Suppository PR SCH (10:38)
[2023-01-21] MEDS: Atorvastatin Calcium 40 MG TAB PO SCH (20:16)
[2023-01-22] MEDS: Sodium Chloride 0.9% 1,000 ML IV SCH ×2 (01:12→13:55)
[2023-01-22 05:31] LABS: Anion Gap 12 mmol/L (10-20); BUN (Urea Nitrogen) 6 mg/dL (9.8-20.1); Calc. Creatinine Clearance 67 mL/min (70-130); Calcium 8.6 mg/dL (7.8-10.44); Carbon Dioxide 23 mmol/L (23-31); Chloride 107 mmol/L (98-107); Estimated GFR 85; Glucose 90 mg/dL (83-110); Magnesium 2.1 mg/dL (1.6-2.6); Potassium 3.6 mmol/L (3.5-5.1); Sodium 138 mmol/L (136-145)
[2023-01-22] MEDS: Aspirin 300 MG Suppository PR SCH (08:08)
[2023-01-22] MEDS: Pantoprazole 40 MG VIAL IVP SCH (09:02)
[2023-01-22] MEDS: Aspirin 325 mg Enteric Coated Tablet PO SCH (09:03)
[2023-01-22] MEDS: Amlodipine 10 MG TAB PO SCH (10:29)
[2023-01-22] MEDS: Lisinopril 20 MG TAB PO SCH (10:29)
[2023-01-22] MEDS ORDERED: dilTIAZem 125 MG in Sodium Chloride 0.9% 100 ML IVPB SCH (13:00)
[2023-01-22] MEDS ORDERED: Amiodarone 200 MG TAB PO SCH (16:15)
[2023-01-22] MEDS: Atorvastatin Calcium 40 MG TAB PO SCH (21:04)
[2023-01-22] MEDS: Metoprolol Tartrate 25 MG TAB PO SCH (21:05)
[2023-01-22] MEDS: Amiodarone 200 MG TAB PO SCH (21:05)
[2023-01-23] MEDS: Sodium Chloride 0.9% 1,000 ML IV SCH ×2 (02:49→15:51)
[2023-01-23] MEDS: Pantoprazole 40 MG VIAL IVP SCH (09:20)
[2023-01-23] MEDS: Metoprolol Tartrate 25 MG TAB PO SCH ×2 (09:20→21:52)
[2023-01-23] MEDS: Amiodarone 200 MG TAB PO SCH ×2 (09:20→21:53)
[2023-01-23] MEDS: Lisinopril 20 MG TAB PO SCH (09:20)
[2023-01-23] MEDS: Amlodipine 10 MG TAB PO SCH (09:20)
[2023-01-23] MEDS: Aspirin 325 MG TAB PO SCH ×2 (09:41→10:05)
[2023-01-23] MEDS: Aspirin 300 MG Suppository PR SCH (11:39)
[2023-01-23] MEDS: Aspirin 325 mg Enteric Coated Tablet PO SCH (11:39)
[2023-01-23] MEDS: Atorvastatin Calcium 40 MG TAB PO SCH (21:53)
[2023-01-24] MEDS: Sodium Chloride 0.9% 1,000 ML IV SCH ×2 (04:16→18:31)
[2023-01-24] MEDS: Aspirin 300 MG Suppository PR SCH (08:47)
[2023-01-24] MEDS: Amlodipine 10 MG TAB PO SCH (08:48)
[2023-01-24] MEDS: Lisinopril 20 MG TAB PO SCH (08:48)
[2023-01-24] MEDS: Aspirin 325 MG TAB PO SCH (08:48)
[2023-01-24] MEDS: Amiodarone 200 MG TAB PO SCH ×2 (08:49→20:36)
[2023-01-24] MEDS: Pantoprazole 40 MG VIAL IVP SCH (08:50)
[2023-01-24] MEDS: Metoprolol Tartrate 25 MG TAB PO SCH ×2 (08:51→20:36)
[2023-01-24] MEDS: Atorvastatin Calcium 40 MG TAB PO SCH (20:35)
[2023-01-25] MEDS: Sodium Chloride 0.9% 1,000 ML IV SCH ×2 (04:07→17:39)
[2023-01-25] MEDS: Amlodipine 10 MG TAB PO SCH (10:58)
[2023-01-25] MEDS: Metoprolol Tartrate 25 MG TAB PO SCH ×2 (10:59→22:21)
[2023-01-25] MEDS: Lisinopril 20 MG TAB PO SCH (11:00)
[2023-01-25] MEDS: Amiodarone 200 MG TAB PO SCH ×2 (11:01→22:21)
[2023-01-25] MEDS: Pantoprazole 40 MG VIAL IVP SCH (11:03)
[2023-01-25] MEDS: Aspirin 300 MG Suppository PR SCH (11:33)
[2023-01-25] MEDS: Atorvastatin Calcium 40 MG TAB PO SCH (22:22)
[2023-01-26] MEDS: Sodium Chloride 0.9% 1,000 ML IV SCH (04:26)
[2023-01-26] MEDS: Amiodarone 200 MG TAB PO SCH ×2 (12:17→21:04)
[2023-01-26] MEDS: Amlodipine 10 MG TAB PO SCH (12:17)
[2023-01-26] MEDS: Aspirin 325 MG TAB PO SCH (12:18)
[2023-01-26] MEDS: Lisinopril 20 MG TAB PO SCH (12:18)
[2023-01-26 12:35] LABS: #Basophils 0.1 thou/uL (0.0-0.2); #Eosinphils 0.1 thou/uL (0.0-0.7); #Monocytes 0.5 thou/uL (0.11-0.59); %Basophils 1.5 % (0.0-1.0); %Eosinophils 3.1 % (0.0-10.0); %Lymphocytes 32.1 % (21.0-51.0); %Monocytes 12.8 % (0.0-10.0); %Neutrophils 50.2 % (42.0-75.0); Hematocrit 41.3 % (36.0-47.0); Hemoglobin 13.6 g/dL (12.0-16.0); Mean Corpuscular HGB CONC 32.9 g/dL (32.0-36.0); Mean Corpuscular Hemoglobin 32.4 pg (27.0-31.0); Mean Corpuscular Volume 98.3 fl (78.0-98.0); Platelet Count 245 10x3/uL (130-400); RBC Distribution Width 12.9 % (11.5-14.5); White Blood Cell (WBC) Count 3.9 10x3/uL (4.8-10.8)
[2023-01-26 12:59] LABS: ALT (SGPT) 15 U/L (8-55); AST (SGOT) 23 U/L (5-34); Albumin 3.5 g/dL (3.4-4.8); Alkaline Phosphatase 60 U/L (40-110); Anion Gap 12 mmol/L (10-20); BUN (Urea Nitrogen) 6 mg/dL (9.8-20.1); Bilirubin, Total 0.5 mg/dL (0.2-1.2); Calc. Creatinine Clearance 62 mL/min (70-130); Calcium 9.1 mg/dL (7.8-10.44); Carbon Dioxide 25 mmol/L (23-31); Chloride 108 mmol/L (98-107); Estimated GFR 78; Globulin 3.5 g/dL (2.4-3.5); Glucose 111 mg/dL (83-110); Potassium 3.5 mmol/L (3.5-5.1); Sodium 141 mmol/L (136-145)
[2023-01-26] MEDS: Pantoprazole 40 MG VIAL IVP SCH (13:31)
[2023-01-26] MEDS: Metoprolol Tartrate 25 MG TAB PO SCH (13:31)
[2023-01-26] MEDS ORDERED: Potassium Chloride 20 MEQ TAB PO SCH (14:00)
[2023-01-26] MEDS: Atorvastatin Calcium 40 MG TAB PO SCH (21:00)
[2023-01-27] MEDS: Aspirin 325 MG TAB PO SCH (08:51)
[2023-01-27] MEDS: Amiodarone 200 MG TAB PO SCH ×2 (08:51→20:26)
[2023-01-27] MEDS: Amlodipine 10 MG TAB PO SCH (08:51)
[2023-01-27] MEDS: Lisinopril 20 MG TAB PO SCH (08:51)
[2023-01-27] MEDS ORDERED: Polyethylene Glycol 3350 17 GM Packet PO PRN (10:51)
[2023-01-27] MEDS ORDERED: Senokot S 8.6-50 MG TAB PO SCH (11:00)
[2023-01-27] MEDS: Atorvastatin Calcium 40 MG TAB PO SCH (20:26)
[2023-01-27] MEDS: Senokot S 8.6-50 MG TAB PO SCH (20:26)
[2023-01-28 05:10] LABS: #Basophils 0.1 thou/uL (0.0-0.2); #Eosinphils 0.2 thou/uL (0.0-0.7); #Monocytes 0.5 thou/uL (0.11-0.59); #Neutrophils 3.1 thou/uL (1.40-6.50); %Basophils 0.9 % (0.0-1.0); %Eosinophils 2.8 % (0.0-10.0); %Lymphocytes 29.1 % (21.0-51.0); %Monocytes 8.6 % (0.0-10.0); %Neutrophils 58.4 % (42.0-75.0); Hematocrit 42.4 % (36.0-47.0); Hemoglobin 13.9 g/dL (12.0-16.0); Mean Corpuscular HGB CONC 32.8 g/dL (32.0-36.0); Mean Corpuscular Volume 97.5 fl (78.0-98.0); Mean Platelet Volume 11.6 fL (7.4-10.4); Platelet Count 224 10x3/uL (130-400); Red Blood Cell (RBC) Count 4.35 mill/uL (4.20-5.40); White Blood Cell (WBC) Count 5.3 10x3/uL (4.8-10.8)
[2023-01-28 05:51] LABS: Anion Gap 13 mmol/L (10-20); BUN (Urea Nitrogen) 9 mg/dL (9.8-20.1); Calc. Creatinine Clearance 60 mL/min (70-130); Calcium 9.8 mg/dL (7.8-10.44); Carbon Dioxide 27 mmol/L (23-31); Chloride 105 mmol/L (98-107); Estimated GFR 74; Glucose 101 mg/dL (83-110); Potassium 4.1 mmol/L (3.5-5.1); Sodium 141 mmol/L (136-145)
[2023-01-28] MEDS: Amlodipine 10 MG TAB PO SCH (09:20)
[2023-01-28] MEDS: Lisinopril 20 MG TAB PO SCH (09:20)
[2023-01-28] MEDS: Senokot S 8.6-50 MG TAB PO SCH (09:20)
[2023-01-28] MEDS: Aspirin 325 MG TAB PO SCH (09:20)
[2023-01-28] MEDS: Amiodarone 200 MG TAB PO SCH (09:20)
[2023-01-28 12:05] VITALS: BP 141/67; TEMP 98.9
[2023-02-05] MEDS ORDERED: Apixaban 5 MG TAB PO SCH (21:00)
== END 2023-01-28 15:05 | DRG 23 ==
LOC: ERS 17:51 → CCU 19:19 → SDC/OP 19:54 → CCU 20:42 → 2SE 01-20 18:14
PROVIDERS: ADMIT Internal Medicine; ATTEND Internal Medicine
PROC: 4A00X4Z Measurement of Central Nervous Electrical Activity, External Approach (ICD-10-PCS; 2023-01-16)
PROC: 03CG3ZZ Extirpation of Matter from Intracranial Artery, Percutaneous Approach (ICD-10-PCS; principal; 2023-01-19)
PROC: 3E033XZ Introduction of Vasopressor into Peripheral Vein, Percutaneous Approach (ICD-10-PCS; 2023-01-19)
DX: I63.512 Cerebral infarction due to unspecified occlusion or stenosis of left middle cerebral artery (principal); G93.41 Metabolic encephalopathy; I10 Essential (primary) hypertension; F03.90 Unspecified dementia, unspecified severity, without behavioral disturbance, psychotic disturbance, mood disturbance, and anxiety; R47.01 Aphasia; E11.9 Type 2 diabetes mellitus without complications; E78.5 Hyperlipidemia, unspecified; I48.91 Unspecified atrial fibrillation
CPT/HCPCS: 36415; 36416; 61645; 70450; 70496; 70498; 70551; 71045; 80048; 80053; 80061; 83036; 83735; 83880; 84484; 85025; 85610; 85730; 90471; 90694; 93005; 93306; 95711; 95819; C1769; C1887; C1894; C9113; G0008; J0360; J1644; J1650; J2001; J2704; J3480; J3490; J7050; Q9967

== ENCOUNTER 2023-01-29 13:08 | Emergency (ER) | payer MEDICARE ==
[2023-01-29 14:31] LABS: #Basophils 0.1 thou/uL (0.0-0.2); #Eosinphils 0.1 thou/uL (0.0-0.7); #Monocytes 0.5 thou/uL (0.11-0.59); #Neutrophils 4.2 thou/uL (1.40-6.50); %Basophils 0.9 % (0.0-1.0); %Eosinophils 1.7 % (0.0-10.0); %Lymphocytes 16.6 % (21.0-51.0); %Monocytes 8.7 % (0.0-10.0); %Neutrophils 71.9 % (42.0-75.0); Hematocrit 42.1 % (36.0-47.0); Hemoglobin 13.8 g/dL (12.0-16.0); Mean Corpuscular HGB CONC 32.8 g/dL (32.0-36.0); Mean Corpuscular Hemoglobin 32.2 pg (27.0-31.0); Mean Corpuscular Volume 98.1 fl (78.0-98.0); Platelet Count 282 10x3/uL (130-400); RBC Distribution Width 13.2 % (11.5-14.5); Red Blood Cell (RBC) Count 4.29 mill/uL (4.20-5.40); White Blood Cell (WBC) Count 5.9 10x3/uL (4.8-10.8)
[2023-01-29 14:56] LABS: ALT (SGPT) 19 U/L (8-55); AST (SGOT) 21 U/L (5-34); Albumin 3.8 g/dL (3.4-4.8); Alkaline Phosphatase 64 U/L (40-110); Anion Gap 12 mmol/L (10-20); BUN (Urea Nitrogen) 16 mg/dL (9.8-20.1); Bilirubin, Total 0.5 mg/dL (0.2-1.2); Calc. Creatinine Clearance 0 mL/min (70-130); Calcium 9.5 mg/dL (7.8-10.44); Carbon Dioxide 27 mmol/L (23-31); Chloride 103 mmol/L (98-107); Estimated GFR 48; Globulin 3.8 g/dL (2.4-3.5); Glucose 110 mg/dL (83-110); Potassium 4.1 mmol/L (3.5-5.1); Protein, Total 7.6 g/dL (5.8-8.1); Sodium 138 mmol/L (136-145)
[2023-01-29 15:01] LABS: Troponin I 0.012 ng/mL (< 0.028)
== END 2023-01-29 17:02 | disposition home or self-care (01) ==
LOC: ERS 13:08
DX: R00.1 Bradycardia, unspecified (principal); F03.90 Unspecified dementia, unspecified severity, without behavioral disturbance, psychotic disturbance, mood disturbance, and anxiety; I48.91 Unspecified atrial fibrillation; Z86.73 Personal history of transient ischemic attack (TIA), and cerebral infarction without residual deficits
CPT/HCPCS: 36415; 71045; 84484; 93005